=== PATIENT | female | born 1975 | race Asian ===

== ENCOUNTER 2016-05-23 00:02 | Emergency (ER) | payer BC ==
[2016-05-23 00:52] LABS: Hematocrit 36 % (35-47); Hemoglobin 11.8 g/dl (12.0-16.0); Mean Corpuscular HGB Conc 33 g/dl (31-36); Mean Corpuscular Hemoglobin 29 pg (27-31); Mean Corpuscular Volume 86 fL (80-97); Mean Platelet Volume 7 um3 (7.4-10.4); Red Blood Count 4.12 10^6/ul (4.0-5.4); Red Cell Distribution Width 14 % (10.5-15); White Blood Count 6.3 10^3/ul (3.5-10.8)
[2016-05-23 01:05] LABS: BUN/Creatinine Ratio 21.9 (8-20); EGFR Non-African American 87.9 (>60); Globulin 2.8 g/dL (2-4); Potassium 3.6 mmol/L (3.5-5.0); Total Bilirubin 0.2 mg/dL (0.2-1.0); Total Protein 6.8 g/dL (6.4-8.9)
--- NOTE | 2016-05-23 01:22 | ED ---
Vasquez Pérez Erika, scribed for Yovany Kc MD on 05/23/16 at 0039 . Neurological HPI - HPI Summary HPI Summary: Patient is a 41-year-old female presenting to the ED with a CC right-sided facial numbness. Patient reports that she first noticed the numbness when she was eating dinner at 18:00. She states she felt as if she could not use her tongue well - for instance, she could not use her tongue to dislodge food between her teeth, as she usually can. Pt also reports mild numbness to the right side of her face. Pt does not smoke. - History of Current Complaint Chief Complaint: EDNeurologicalDeficit Stated Complaint: RT SIDE FACE DROOPING/NUMBNESS Time Seen by Provider: 05/23/16 00:17 Last Known Well Date: 05/22/2016 18:00 Hx Obtained From: Patient Onset/Duration: Gradual Onset, Started hours ago, Still Present Timing: Constant Onset Severity: Mild Current Severity: Mild Pain Intensity: 0 Pain Scale Used: 0-10 Numeric Character: Numbness/Tingling - R side of face, tongue Aggravating: Nothing Alleviating: Nothing - Allergy/Home Medications Allergies/Adverse Reactions: Allergies Allergy/AdvReac Type Severity Reaction Status Date / Time No Known Allergies Allergy Verified 09/29/12 16:41 PMH/Surg Hx/FS Hx/Imm Hx Endocrine/Hematology History: Reports: Other Endocrine/Hematological Disorders - had gestational DM Cardiovascular History: Denies: Hx Myocardial Infarction Infectious Disease History: No Infectious Disease History: Denies: Traveled Outside the [place] in Last 30 Days - Family History Family History: Denies FHx anesthesia reaction - Social History Occupation: Employed Full-time Lives: With Family Hx Substance Use: No Substance Use Type: Reports: None Hx Tobacco Use: No Smoking Status (MU): Never Smoked Tobacco Review of Systems Negative: Fever ENT: Other - tongue numbness/difficulty with tongue use Positive: Numbness - R facial All Other Systems Reviewed And Are Negative: Yes Physical Exam Triage Information Reviewed: Yes Vital Signs On Initial Exam: Initial Vitals Temp Pulse Resp BP Pulse Ox 98.1 F 78 16 143/83 100 05/23/16 00:04 05/23/16 00:04 05/23/16 00:04 05/23/16 00:04 05/23/16 00:04 Vital Signs Reviewed: Yes Appearance: Positive: Well-Appearing, No Pain Distress Skin: Positive: Warm Head/Face: Positive: Normal Head/Face Inspection Eyes: Positive: EOMI, ROHIT ENT: Positive: Hearing grossly normal Neck: Positive: Supple Respiratory/Lung Sounds: Positive: Clear to Auscultation, Breath Sounds Present Cardiovascular: Positive: RRR Abdomen Description: Positive: Nontender, Soft Bowel Sounds: Positive: Present Musculoskeletal: Positive: Strength/ROM Intact Neurological: Positive: Sensory/Motor Intact, Alert, Oriented to Person Place, Time, CN Intact II-III, Normal Gait Diagnostics - Vital Signs Vital Signs Temp Pulse Resp BP Pulse Ox 05/23/16 00:04 98.1 F 78 16 143/83 100 - Laboratory Lab Results: Lab Results 05/23/16 05/23/16 Range/Units 00:25 00:25 WBC 6.3 (3.5-10.8) 10^3/ul RBC 4.12 (4.0-5.4) 10^6/ul Hgb 11.8 L (12.0-16.0) g/dl Hct 36 (35-47) % MCV 86 (80-97) fL MCH 29 (27-31) pg MCHC 33 (31-36) g/dl RDW 14 (10.5-15) % Plt Count 261 (150-450) 10^3/ul MPV 7 L (7.4-10.4) um3 Neut % (Auto) 56.2 (38-83) % Lymph % (Auto) 36.9 (25-47) % Bates % (Auto) 4.5 (1-9) % Eos % (Auto) 1.8 (0-6) % Baso % (Auto) 0.6 (0-2) % Absolute Neuts (auto) 3.5 (1.5-7.7) 10^3/ul Absolute Lymphs (auto) 2.3 (1.0-4.8) 10^3/ul Absolute Monos (auto) 0.3 (0-0.8) 10^3/ul Absolute Eos (auto) 0.1 (0-0.6) 10^3/ul Absolute Basos (auto) 0 (0-0.2) 10^3/ul Absolute Nucleated RBC 0.01 10^3/ul Nucleated RBC % 0.1 Sodium 137 (133-145) mmol/L Potassium 3.6 (3.5-5.0) mmol/L Chloride 107 (101-111) mmol/L Carbon Dioxide 25 (22-32) mmol/L Anion Gap 5 (2-11) mmol/L BUN 16 (6-24) mg/dL Creatinine 0.73 (0.51-0.95) mg/dL Est GFR ( Amer) 113.0 (>60) Est GFR (Non-Af Amer) 87.9 (>60) BUN/Creatinine Ratio 21.9 H (8-20) Glucose 160 H (70-100) mg/dL Calcium 9.0 (8.6-10.3) mg/dL Total Bilirubin 0.20 (0.2-1.0) mg/dL AST 25 (13-39) U/L ALT 16 (7-52) U/L Alkaline Phosphatase 55 (34-104) U/L Total Protein 6.8 (6.4-8.9) g/dL Albumin 4.0 (3.2-5.2) g/dL Globulin 2.8 (2-4) g/dL Albumin/Globulin Ratio 1.4 (1-3) Beta HCG, Quant 2.52 mIU/mL Result Diagrams: 05/23/16 00:25 05/23/16 00:25 Lab Statement: Any lab studies that have been ordered have been reviewed, and results considered in the medical decision making process. - CT CT Brain CT Interpretation Completed By: Radiologist - [employer]AGING [employer] TECHNICIAN - 1. No definitive evidence of acute intracranial hemorrhage, intracranial mass effect, hydrocephalus, or depressed calvarial fracture is appreciated. 2. The visualized portions of the paranasal sinuses are clear. NIH Scale - NIH Scale Level of Consciousness: Alert/Keenly Responsive Ask Patient the Month and His/Her Age: Both Correct Ask Pt to Open/Close Eyes and External Relations Manager/Release Non-Paretic Hand: Both Correctly Best Gaze (Only Horizontal Eye Movement): Normal Visual Field Testing: No Visual Loss Facial Paresis-Pt to Smile & Close Eyes or Grimace Symmetry: Normal/Symmetrical Motor Function - Right Arm: No Drift-Holds 10 Seconds Motor Function - Left Arm: No Drift-Holds 10 Seconds Motor Function - Right Leg: No Drift-Holds 10 Seconds Motor Function - Left Leg: No Drift-Holds 10 Seconds Limb Ataxia-Must be out of Proportion to Weakness Present: Absent Sensory (Use Pinprick to Test Arms/Legs/Trunk/Face): Normal Best Language (Describe Picture, Name Items): No Aphasia Dysarthria (Read Several Words): Normal Extinction and Inattention: No Abnormality Total Score: 0 Re-Evaluation - Re-Evaluation First Eval Re-Evaluation Time: 02:05 Change: Improved Comment: Discussed normal CT brain and lab results. Patient to be discharged Course/Dx - Course Assessment/Plan: A 41 y/o F presents to the ED with a CC of tongue and R side of face numbness and no other deficits. Brain CT shows no acute intracranial process. Lyme disease lab sent. Patient will be discharged home with follow up from her PCP. - Diagnoses Provider Diagnoses: Paresthesia Discharge - Discharge Plan Condition: Stable Disposition: HOME Patient Education Materials: Paresthesia (ED) Referrals: [facility] [place] PHYSICIAN REFERRAL [Outside] Additional Instructions: Please follow up with your PCP. The documentation as recorded by the Vasquez weston Erika accurately reflects the service I personally performed and the decisions made by , Yovany Kc MD.
[2016-05-23 02:59] VITALS: BP 103/42
--- NOTE | 2016-05-23 08:23 | RAD ---
Indication: Paresthesias. CT of the brain was performed without IV contrast. No prior study is available for comparison. Ventricular structures are midline. No midline shift is noted. The extraction spaces are unremarkable. There is no evidence of intracranial mass or hemorrhage. No other high or low density lesions are identified. Mastoid air cells and paranasal sinuses are otherwise unremarkable. IMPRESSION: No intracranial mass or hemorrhage is noted.
[2016-05-25 16:16] LABS: Lyme DNA Rapid PCR Negative (Negative)
== END 2016-05-23 02:58 | disposition home or self-care (01) ==
LOC: ED 00:02
DX: R20.9 Unspecified disturbances of skin sensation (principal)
CPT/HCPCS: 36415; 70450; 80053; 84702; 85025; 87476; 99282

== ENCOUNTER 2019-05-08 06:53 | Emergency (ER) | payer BC ==
[2019-05-08] MEDS ORDERED: Morphine 4 MG/ML VIAL (1 ml) 4 MG/ML VIAL IV ONE ×2 (07:13→09:14)
[2019-05-08] MEDS ORDERED: Ondansetron INJ* 2 MG/ML VIAL IV ONE (07:13)
[2019-05-08] MEDS ORDERED: NS 0.9% 1000 ML** 1,000 ML IV ONE ×2 (07:13→08:01)
--- NOTE | 2019-05-08 07:18 | ED ---
Abdominal Pain/Female - HPI Summary HPI Summary: 44-year-old female with significant past medical history as renal calculi presents to emergency department today complaining of 10 out of 10 sudden onset left flank pain which began at approximately 0400 this date. Patient describes her pain as sharp and nonradiating. Patient also endorses mild pain with urination and urgency. Patient denies fevers, vomiting but does have mild nausea. Patient states this feels what her last kidney stone which was approximately 20 years ago. Patient is taken 400 mg of ibuprofen prior to arrival approximately one hour ago. Patient otherwise feels well and denies chest pain, abdominal pain, fever, vomiting, diarrhea, rash. Surgical and family history is noncontributory. - History of Current Complaint Chief Complaint: EDFlankPain Stated Complaint: FLANK PAIN PER PT Time Seen by Provider: 05/08/19 07:07 Hx Obtained From: Patient Onset/Duration: Sudden Onset Timing: Constant Severity Initially: Severe Severity Currently: Severe Pain Intensity: 8 Pain Scale Used: 0-10 Numeric Location: Flank Radiates: No Character: Sharp Aggravating Factor(s): Movement Associated Signs and Symptoms: Positive: Urinary Symptoms, Nausea. Negative: Fever, Cough, Chest Pain, Vaginal Bleeding, Vaginal Discharge, Vomiting, Diarrhea Allergies/Adverse Reactions: Allergies Allergy/AdvReac Type Severity Reaction Status Date / Time No Known Allergies Allergy Verified 05/08/19 06:59 Home Medications: Home Medications Ibuprofen TAB* [Advil TAB*] 200 mg PO Q6H PRN 05/08/19 [History Confirmed ] PMH/Surg Hx/FS Hx/Imm Hx Endocrine/Hematology History: Reports: Other Endocrine/Hematological Disorders - had gestational DM Cardiovascular History: Denies: Hx Myocardial Infarction - Immunization History Date of Tetanus Vaccine: UTD Date of Influenza Vaccine: fall 2015 Infectious Disease History: No Infectious Disease History: Denies: Traveled Outside the [place] in Last 30 Days - Family History Family History: Denies FHx anesthesia reaction - Social History Alcohol Use: Occasionally Hx Substance Use: No Substance Use Type: Reports: None Hx Tobacco Use: No Smoking Status (MU): Never Smoked Tobacco Review of Systems Constitutional: Negative Eyes: Negative ENT: Negative Cardiovascular: Negative Respiratory: Negative Positive: Nausea. Negative: Abdominal Pain, Vomiting, Diarrhea Positive: flank pain, urgency Musculoskeletal: Negative Skin: Negative Neurological/Mental Status: Negative Positive: Headache Psychological: Normal All Other Systems Reviewed And Are Negative: Yes Physical Exam Triage Information Reviewed: Yes Vital Signs On Initial Exam: Initial Vitals Temp Pulse Resp BP Pulse Ox 97.7 F 60 16 143/59 99 05/08/19 06:55 05/08/19 06:55 05/08/19 06:55 05/08/19 06:55 05/08/19 06:55 Vital Signs Reviewed: Yes Appearance: Positive: Well-Appearing, No Pain Distress, Well-Nourished Skin: Positive: Warm, Skin Color Reflects Adequate Perfusion Eyes: Positive: EOMI, ROHIT Respiratory/Lung Sounds: Positive: Clear to Auscultation, Breath Sounds Present Cardiovascular: Positive: RRR, S1, S2 Abdomen Description: Positive: Nontender, No Organomegaly, Soft. Negative: CVA Tenderness (R), CVA Tenderness (L), Distended, Guarding Bowel Sounds: Positive: Present Musculoskeletal: Positive: Strength/ROM Intact Neurological: Positive: Sensory/Motor Intact, Alert, Oriented to Person Place, Time, Facial Symmetry, Speech Normal Psychiatric: Positive: Normal, Affect/Mood Appropriate AVPU Assessment: Alert Procedures - Sedation Patient Received Moderate/Deep Sedation with Procedure: No Diagnostics - Vital Signs Vital Signs Temp Pulse Resp BP Pulse Ox 05/08/19 06:55 97.7 F 60 16 143/59 99 - Laboratory Result Diagrams: 05/08/19 08:08 05/08/19 08:08 Lab Statement: Any lab studies that have been ordered have been reviewed, and results considered in the medical decision making process. Abdominal Pain Fem Course/Dx - Course Course Of Treatment: Pt was evaluated in the emergency department for left flank pain. Pt evaluated, vitals noted. IV was established and patient was given 4mg zofran and 4mg morphine for pain. Pt was given 2L normal saline. KUB was done which shows 3mm calcification in the left hemipelvis. Urine returned showing contamination with 3+ blood. This is consistent with radiographic evidence of kidney stone. No evidence of urinary tract infection at this time. Renal ultrasound shows moderate degree of left hydronephrosis and hydroureter proximally. Left ureteral jets is not identified and 10 minutes. This suggests left-sided obstruction. Urology services unavailable however is deemed the patient follow up in their office in 2-3 days for further evaluation and management. Patient was given tamsulosin and Percocet 5 mg for breakthrough pain. Patient instructed to take ibuprofen and drink plenty of fluid and only is opioid pain medication for unbearable break through pain. Patient discharged to outpatient follow-up. Patient instructed to return to the emergency department immediately if she developed any new or worsening symptoms such as fever, intractable vomiting. - Diagnoses Differential Diagnosis: Positive: Abdominal Aortic Aneurysm, Renal Colic, Urinary Tract Infection Provider Diagnoses: Kidney stone on left side Discharge ED - Sign-Out/Discharge Documenting (check all that apply): Patient Departure - Discharge Plan Condition: Stable Disposition: HOME Prescriptions: Ondansetron ODT TAB* [Zofran 4 MG Odt TAB*] 4 mg PO Q6H PRN #12 tab.odt PRN Reason: Nausea oxyCODONE/Acetamin 5/325 MG* [Percocet 5/325 TAB*] 1 tab PO Q4H PRN #12 tab MDD 6 PRN Reason: Pain - Severe Tamsulosin CAP* [Flomax CAP*] 0.4 mg PO BID #12 cap Patient Education Materials: Kidney Stones (ED) Referrals: No Primary Care Phys,NOPCP [Primary Care Provider] - Huey Catherine MD [Medical Doctor] - 3 Days Additional Instructions: you were seen in the emergency department today due to a left-sided 3 mm kidney stone causing obstruction. This kidney stone will most likely pass on its own. Until then be sure to drink plenty of fluid and take ibuprofen as needed for pain. I also prescribed a short course of opioid pain medications which you may take for breakthrough pain unable to be treated with ibuprofen. I will also give you antinausea medicine which may be taken every 6 hours as needed. Please follow up with urology as soon as possible for further evaluation and management. Please return to the emergency Department immediately if you develop any new or worsening symptoms such as fever, intractable vomiting. - Billing Disposition and Condition Condition: STABLE Disposition: Home
[2019-05-08 07:55] LABS: Urine Appearance Turbid; Urine Bilirubin Negative (Negative); Urine Blood 3+ (Negative); Urine Color Yellow; Urine Glucose Negative (Negative); Urine Ketones Trace (Negative); Urine Nitrite Negative (Negative); Urine Protein 1+(30 mg/dL) (Negative); Urine Specific Gravity 1.026 (1.010-1.030); Urine Urobilinogen Negative (Negative)
[2019-05-08 08:01] LABS: Urine Bacteria Absent (Absent); Urine Red Blood Cell 3+(>10/hpf) (Absent); Urine Squamous Epithelial Cell Present (Absent); Urine White Blood Cell Absent (Absent)
[2019-05-08] MEDS ORDERED: Tamsulosin CAP* 0.4 MG PO ONE (08:01)
[2019-05-08 08:16] LABS: ABS Eosinophils 0.1 10^3/ul (0-0.6); ABS Lymphocytes 1.1 10^3/ul (1.0-4.8); ABS Monocytes 0.3 10^3/ul (0-0.8); ABS Neutrophils 4.6 10^3/ul (1.5-7.7); Hematocrit 36 % (35-47); Hemoglobin 12.3 g/dL (12.0-16.0); Lymphocyte % 18.1 %; Mean Corpuscular HGB Conc 34 g/dL (31-36); Mean Corpuscular Hemoglobin 30 pg (27-31); Mean Corpuscular Volume 87 fL (80-97); Mean Platelet Volume 6.6 fL (7.4-10.4); Platelet Count 220 10^3/uL (150-450); Red Blood Count 4.18 10^6 /uL (3.70-4.87); Red Cell Distribution Width 14 % (10-15); White Blood Count 6.2 10^3/uL (3.5-10.8)
[2019-05-08 08:43] LABS: ALT 25 U/L (7-52); AST 27 U/L (13-39); Albumin 4.1 g/dL (3.2-5.2); Albumin/Globulin Ratio 1.5 (1-3); Alkaline Phosphatase 63 U/L (34-104); Anion Gap 5 mmol/L (2-11); BUN/Creatinine Ratio 29.2 (8-20); Blood Urea Nitrogen 21 mg/dL (6-24); C Reactive Protein < 1.00 mg/L (<8.01); CO2 Carbon Dioxide 28 mmol/L (22-32); Calcium 8.9 mg/dL (8.6-10.3); Chloride 104 mmol/L (101-111); EGFR African American 106.5 (>60); Globulin 2.7 g/dL (2-4); Glucose 117 mg/dL (70-100); Potassium 3.8 mmol/L (3.5-5.0); Sodium 137 mmol/L (135-145); Total Protein 6.8 g/dL (6.4-8.9)
[2019-05-08 08:44] LABS: HCG Pregnancy 1.91 mIU/mL
[2019-05-08] MEDS ORDERED: Ketorolac INJ* 30 MG/ML 1 ML VIAL IV PUSH ONE (09:39)
[2019-05-08 10:36] VITALS: BP 110/57
== END 2019-05-08 10:33 | disposition home or self-care (01) ==
LOC: ED 06:53
DX: N28.89 Other specified disorders of kidney and ureter (principal); N13.30 Unspecified hydronephrosis; R11.0 Nausea
CPT/HCPCS: 36415; 74018; 76775; 80053; 81003; 81015; 83690; 84702; 85025; 86140; 96361; 96374; 96375; 96376; 99283; J1885; J2270; J2405